=== PATIENT | female | born 1935 | race Two or more races ===

== ENCOUNTER 2018-04-21 02:50 | Emergency (ER) | payer OTHER ==
[~2018-04-21] VITALS: Ht 154.9 cm; Wt 46.3 kg
[~2018-04-21 02:50] MED LIST: DEXILANT60 MG; DIOVAN320 MG; ZANTAC300 MG
== END 2018-04-21 08:09 | disposition home or self-care (01) ==
LOC: ER 02:50
DX: K29.60 Other gastritis without bleeding (principal)

== ENCOUNTER 2020-08-03 10:28 | Emergency (ER) | payer OTHER ==
[~2020-08-03] VITALS: Ht 154.9 cm; Wt 55.3 kg
[2020-08-03] MEDS ORDERED: MICARDIS40 MG PO (10:39)
[2020-08-03] MEDS ORDERED: CARAFATE1 GM PO (10:40)
[2020-08-03] MEDS ORDERED: PROTONIX40 MG PO (10:40)
[2020-08-03] MEDS ORDERED: MIRTAZAPINE45 MG PO (10:41)
[2020-08-03] MEDS ORDERED: ATORVASTATIN CA20 MG PO (10:42)
[2020-08-03] MEDS ORDERED: ATENOLOL25 MG PO (10:42)
== END 2020-08-03 12:16 | disposition home or self-care (01) ==
LOC: ER 10:28
DX: I10 Essential (primary) hypertension (principal)

== ENCOUNTER 2022-05-28 06:47 | Emergency (ER) | payer OTHER ==
[~2022-05-28] VITALS: Ht 152.4 cm; Wt 54.4 kg
[~2022-05-28 06:47] MED LIST changes: +ATENOLOL25 MG PO; +ATORVASTATIN CA20 MG PO; +CARAFATE1 GM PO; +MICARDIS40 MG PO; +MIRTAZAPINE45 MG PO; +PROTONIX40 MG PO
[2022-05-28] MEDS ORDERED: ACIPHEX20 MG PO (07:31)
== END 2022-05-28 13:37 | disposition home or self-care (01) ==
LOC: ER 06:47
DX: N39.0 Urinary tract infection, site not specified (principal); R30.0 Dysuria

== ENCOUNTER 2023-09-18 23:41 | Emergency (ER) | payer OTHER ==
[~2023-09-18] VITALS: Ht 157.5 cm; Wt 52.6 kg
[~2023-09-18 23:41] MED LIST changes: +ACIPHEX20 MG PO
[2023-09-19 01:44] LABS: HEMATOCRIT 44.1 % (36.0-45.00); HEMOGLOBIN 14.9 g/dL (12.0-15.00); MEAN CELL VOLUME 92.7 fL (80.00-100.00); MEAN CORPUSCULAR HEMOGLOBIN 31.2 pg (27.00-32.0); MEAN CORPUSCULAR HGB CONC 33.7 g/dl (32.0-36.0); PLATELET COUNT 278 K/uL (150-450); RED BLOOD COUNT 4.76 M/uL (4.00-6.00); RED CELL DISTRIBUTION WIDTH 14.4 % (11.5-14.5)
== END 2023-09-19 03:11 | disposition home or self-care (01) ==
LOC: ER 23:42
DX: J06.9 Acute upper respiratory infection, unspecified (principal); I10 Essential (primary) hypertension; Z20.822 Contact with and (suspected) exposure to COVID-19
CPT/HCPCS: 36415; 96372; 99284; J0696

== ENCOUNTER 2023-09-22 15:43 | Emergency (ER) | payer OTHER ==
[~2023-09-22] VITALS: Ht 154.9 cm; Wt 52.6 kg
[2023-09-22 18:59] LABS: HEMATOCRIT 41.5 % (36.0-45.00); HEMOGLOBIN 14.3 g/dL (12.0-15.00); MEAN CELL VOLUME 93.4 fL (80.00-100.00); MEAN CORPUSCULAR HEMOGLOBIN 32.1 pg (27.00-32.0); MEAN CORPUSCULAR HGB CONC 34.4 g/dl (32.0-36.0); PLATELET COUNT 258 K/uL (150-450); RED BLOOD COUNT 4.45 M/uL (4.00-6.00); RED CELL DISTRIBUTION WIDTH 13.9 % (11.5-14.5)
== END 2023-09-22 20:54 | disposition home or self-care (01) ==
LOC: ER 15:44
PROVIDERS: General Practice
DX: J02.9 Acute pharyngitis, unspecified (principal); Z20.822 Contact with and (suspected) exposure to COVID-19; I10 Essential (primary) hypertension

== ENCOUNTER 2023-10-02 15:46 | Emergency (ER) | payer OTHER ==
[~2023-10-02] VITALS: Ht 157.5 cm; Wt 63.5 kg
[2023-10-02] MEDS ORDERED: LIDOCAINE HCL 20 MG/ML ML MM ONE (19:15)
[2023-10-02] MEDS ORDERED: FAMOTIDINE/PF 20 MG/2 ML VIAL IV PUSH ONE (19:15)
[2023-10-02] MEDS ORDERED: SIMETHICONE 125 MG CAPSULE PO ONE (19:15)
[2023-10-02 20:49] LABS: HEMATOCRIT 40.6 % (36.0-45.00); HEMOGLOBIN 13.7 g/dL (12.0-15.00); MEAN CELL VOLUME 92.4 fL (80.00-100.00); MEAN CORPUSCULAR HEMOGLOBIN 31.2 pg (27.00-32.0); MEAN CORPUSCULAR HGB CONC 33.8 g/dl (32.0-36.0); PLATELET COUNT 251 K/uL (150-450); RED BLOOD COUNT 4.39 M/uL (4.00-6.00); RED CELL DISTRIBUTION WIDTH 14.1 % (11.5-14.5)
== END 2023-10-02 21:19 | disposition home or self-care (01) ==
LOC: ER 15:46
PROVIDERS: Emergency Medicine
DX: J02.8 Acute pharyngitis due to other specified organisms (principal); I10 Essential (primary) hypertension; K29.70 Gastritis, unspecified, without bleeding; Z20.822 Contact with and (suspected) exposure to COVID-19
CPT/HCPCS: 36415; 70220; 96365; 99283; J3490

== ENCOUNTER 2023-11-03 19:20 | Emergency (ER) | payer OTHER ==
[~2023-11-03] VITALS: Ht 154.9 cm; Wt 52.6 kg
[2023-11-03] MEDS ORDERED: LORATADINE10 MG PO (19:43)
[2023-11-03] MEDS ORDERED: FAMOTIDINE/PF 20 MG/2 ML VIAL IV PUSH ONE (21:45)
[2023-11-03] MEDS ORDERED: PANTOPRAZOLE SODIUM 40 MG/VIAL VIAL IV PUSH ONE (21:45)
== END 2023-11-03 23:45 | disposition home or self-care (01) ==
LOC: ER 19:20
DX: K21.9 Gastro-esophageal reflux disease without esophagitis (principal); R10.9 Unspecified abdominal pain; I10 Essential (primary) hypertension
CPT/HCPCS: 96365; 99282; J3490 ×2

== ENCOUNTER 2024-05-20 16:40 | Emergency (ER) | payer OTHER ==
[~2024-05-20] VITALS: Ht 157.5 cm; Wt 68.0 kg
[~2024-05-20 16:40] MED LIST changes: +ATORVASTATIN CA10 MG PO; +LORATADINE10 MG PO; +RABEPRAZOLE SOD20 MG; +SUCRALFATE1 GM/10 ML PO
[2024-05-20] MEDS ORDERED: ONDANSETRON HCL 2 MG/ML VIAL IV ONE (17:15)
[2024-05-20] MEDS ORDERED: FAMOtidine 10 MG/ML (4ML VIAL) IV ONE (17:15)
[2024-05-20 17:22] LABS: URINE APPEARANCE Clear; URINE BACTERIA 8.7 uL (0.0-1933); URINE BILIRRUBIN Negative (NEGATIVE); URINE COLOR Yellow; URINE EPITHELIAL CELLS 2.4 uL (0.0-38.8); URINE GLUCOSE Negative (NEGATIVE); URINE KETONE Negative (NEGATIVE); URINE LEUKOCYTE Trace; URINE NITRATE Negative; URINE PROTEIN Negative (NEGATIVE); URINE RBC 5.3 uL (0.0-20.8); URINE UROBILINOGEN 0.2 E.U./dl
[2024-05-20 17:29] LABS: HEMOGLOBIN 14.3 g/dL (12.0-15.00); MEAN CELL VOLUME 93.3 fL (80.00-100.00); MEAN CORPUSCULAR HEMOGLOBIN 31.8 pg (27.00-32.0); MEAN CORPUSCULAR HGB CONC 34.1 g/dl (32.0-36.0); PLATELET COUNT 276 K/uL (150-450); RED CELL DISTRIBUTION WIDTH 14.1 % (11.5-14.5)
[2024-05-20 17:42] LABS: URINE BLOOD TRACE
[2024-05-20 17:44] LABS: ALBUMIN 4.1 gm/dL (3.4-5.0); BILIRUBIN TOTAL 0.36 mg/dL (0.3-1.2); CALCIUM 9.6 mg/dL (8.5-10.1); CREATININE SERUM 0.94 mg/dL (0.55-1.02); GFR 56.2; GLOBULINA 3.9 G/DL (2.4-3.5); POTASSIUM 4.17 mEq/L (3.5-5.1)
== END 2024-05-20 19:45 | disposition left against medical advice (07) ==
LOC: ER 16:40
PROVIDERS: General Practice
DX: K29.60 Other gastritis without bleeding (principal); R10.9 Unspecified abdominal pain; I10 Essential (primary) hypertension
CPT/HCPCS: 36415; 93005; 96365; 99282; J2405; J3490

== ENCOUNTER 2025-05-24 08:09 | Emergency (ER) | payer OTHER ==
[~2025-05-24] VITALS: Ht 154.9 cm; Wt 51.3 kg
[2025-05-24 08:16] VITALS: BP 148/80; O2SAT 96
[2025-05-24 09:02] LABS: BASO % 0.4 % (0.1-1.2); EOS # 0.02 (0.04-0.54); EOS % 0.1 % (0.7-7.0); LYMPH # 0.83 (1.18-3.74); LYMPH % 6.0 % (19.3-53.1); MEAN PLATELET VOLUME 9.80 fl (9.4-12.4); MONO # 0.96 (0.24-0.82); MONO % 7.0 % (4.7-12.5); NEUT # 11.89 (1.56-6.13); NEUT % 86.2 % (34.0-71.1); RED CELL DISTRIBUTION WIDTH 14.0 % (11.6-14.4)
[2025-05-24 09:29] LABS: URINE APPEARANCE Cloudy; URINE BILIRRUBIN Negative (NEGATIVE); URINE BLOOD Large; URINE COLOR Yellow; URINE GLUCOSE Negative (NEGATIVE); URINE KETONE Negative (NEGATIVE); URINE LEUKOCYTE Large; URINE NITRATE Negative; URINE PROTEIN Trace (NEGATIVE); URINE UROBILINOGEN 0.2 E.U./dl
[2025-05-24 09:31] LABS: URINE BACTERIA 170.3 uL (0.0-1933); URINE EPITHELIAL CELLS 3.5 uL (0.0-38.8); URINE RBC 74.3 uL (0.0-20.8); URINE WBC 1458.0 uL (0.0-23.2)
[2025-05-24 09:36] LABS: URINE CAST 0.73 uL (0.0-1.40)
[2025-05-24 09:46] LABS: BUN CREA RATIO 24.0 (7.0-25.0); CREATININE SERUM 0.86 mg/dL (0.55-1.02); GFR 62.13; GLUCOSE FASTING 116.0 mg/dL (65-100); OSMOLALITY SERUM 289.0 MOSM/KG (275-295)
[2025-05-24] MEDS ORDERED: CEFTRIAXONE SODIUM 2,000 MG VIAL IV ONE (10:45)
[2025-05-24] MEDS ORDERED: CEFTRIAXONE SODIUM 2,000 MG VIAL ONE (10:47)
[2025-05-24] MEDS ORDERED: LIDOCAINE HCL 1% 10ML VIAL ONE (10:47)
== END 2025-05-24 10:57 | disposition home or self-care (01) ==
LOC: ER 08:09
PROVIDERS: Emergency Medicine
DX: N30.80 Other cystitis without hematuria (principal); I10 Essential (primary) hypertension; E78.49 Other hyperlipidemia; K29.70 Gastritis, unspecified, without bleeding
CPT/HCPCS: 36415; 96365; 99282; J0696